=== PATIENT | female | born 1990 | race Caucasian/White ===

== ENCOUNTER 2017-12-22 10:34 | Emergency (ER) | payer OTHER ==
[~2017-12-22] VITALS: Ht 167.6 cm; Wt 53.1 kg
[2017-12-22] MEDS ORDERED: ONDANSETRON HCL 4 MG ORAL DISINTEGRATING TAB PO ONE (10:45)
[2017-12-22 11:31] LABS: STREPTOCOCCUS GRP A ANTIGEN NEGATIVE (NEGATIVE)
[2017-12-22 11:45] LABS: INFLUENZAE A&B ANTIGEN (RAPID) NEGATIVE (NEGATIVE)
[2017-12-22 12:15] LABS: BILIRUBIN,URINE NEGATIVE (NEGATIVE); KETONES,URINE NEGATIVE (NEGATIVE); LEUKOCYTE ESTERASE ,URINE TRACE (NEGATIVE); NITRITE,URINE NEGATIVE (NEGATIVE); PROTEIN,URINE DIPSTICK NEGATIVE (NEGATIVE); URINE UROBILINOGEN 0.2 mg/dL (0.2 - 1)
[2017-12-22 12:28] LABS: BACTERIA,URINE FEW /HPF; EPITHELIAL CELLS,URINE MANY /LPF; RBC,URINE 0-5 /HPF (0-5); WBC,URINE (MAN) 0-5 /HPF (0-5)
[2017-12-22 12:29] LABS: CLARITY,URINE CLOUDY (CLEAR); COLOR,URINE YELLOW (YELLOW)
[2017-12-22 13:19] VITALS: BP 114/73
== END 2017-12-22 13:20 | disposition home or self-care (01) ==
LOC: ER 10:34
DX: R50.9 Fever, unspecified (principal); O98.511 Other viral diseases complicating pregnancy, first trimester; B34.9 Viral infection, unspecified
CPT/HCPCS: 81001; 83518; 87070; 87086; 87400; 99282

== ENCOUNTER → 2017-12-22 | Emergency (ER) | payer OTHER | END | disposition left against medical advice (07) | LOC: FSED 10:09 | DX: R50.9 Fever, unspecified (principal) ==